=== PATIENT | female | born 1985 | race Caucasian/White ===

== ENCOUNTER → 2024-03-01 | Outpatient (CLI) | payer OTHER ==
--- NOTE | 2024-03-01 16:41 | US ---
EXAMINATION TYPE: US extremity nonvasc mass RT DATE OF EXAM: 03/01/2024 COMPARISON: NONE CLINICAL INDICATION: Female, 39 years old with history of R22.40 local swelling mass lump leg; Pt sta lamont she felt golf ball sized lump right posterior thigh a few weeks ago- has recently decreased in si ze, denies pain TECHNIQUE: Soft tissue right posterior thigh FINDINGS: Soft tissue hyperechoic lesion with small cystic center at palpable site= 1.2 x 0.4 x 1.6 cm with peripheral vascularity IMPRESSION: Partly solid hyperechoic 1.2 x 1.6 x 0.4 cm mass. Indeterminant etiology but is not a si mple cyst. Short-term follow-up is recommended.
== END | disposition home or self-care (01) ==
LOC: RADUSWWP 13:35
PROVIDERS: ATTEND Family Medicine
DX: R22.41 Localized swelling, mass and lump, right lower limb (principal)

== ENCOUNTER → 2024-08-01 | Outpatient (CLI) | payer OTHER ==
[2024-08-01 15:29] LABS: Basophils # (A) 0.05 X 10*3/uL (0.00-0.10); Basophils % (A) 0.9 %; Eosinophils # (A) 0.02 X 10*3/uL (0.04-0.35); Eosinophils % (A) 0.4 %; HCT 40.4 % (37.2-46.3); HGB 13.5 g/dL (12.0-15.0); Lymphocytes # (A) 1.59 X 10*3/uL (0.90-5.00); Lymphocytes % (A) 27.9 %; MCH 34.3 pg (27.0-32.0); MCHC 33.4 g/dL (32.0-37.0); MCV 102.5 FL (80.0-97.0); Mean Platelet Volume 9.4 FL (9.5-12.2); Monocytes # (A) 0.47 X 10*3/uL (0.20-1.00); Monocytes % (A) 8.3 %; NRBC Per 100 WBC 0 X 10*3/uL (0.00-0.01); Neutrophils # (A) 3.55 X 10*3/uL (1.80-7.70); Neutrophils % (A) 62.3 %; Platelet Count 176 X 10*3/uL (140-440); RBC 3.94 X 10*6/uL (4.10-5.20); RDW 11.9 % (11.5-14.5); WBC 5.69 X 10*3/uL (4.50-10.00)
[2024-08-01 18:29] LABS: Prolactin 2.1 ng/mL (2.800-29.200)
[2024-08-02 13:24] LABS: ACTH 37.7 pg/mL (0.00-45.99)
== END | disposition home or self-care (01) ==
LOC: LABWHC1 09:54
PROVIDERS: ATTEND Internal Medicine Endocrinology, Diabetes & Metabolism
DX: E23.0 Hypopituitarism (principal)
CPT/HCPCS: 36415; 82024; 82533; 84146; 84305; 84439; 84443; 84480; 85025

== ENCOUNTER → 2024-08-14 | Outpatient (CLI) | payer OTHER ==
[2024-08-14 15:20] LABS: Prolactin 3.1 ng/mL (2.800-29.200); T4, Free (Free Thyroxine) 0.9 ng/dL (0.80-1.80)
[2024-08-14 15:36] LABS: Basophils # (A) 0.04 X 10*3/uL (0.00-0.10); Basophils % (A) 0.7 %; Eosinophils # (A) 0.01 X 10*3/uL (0.04-0.35); Eosinophils % (A) 0.2 %; HCT 39.9 % (37.2-46.3); HGB 13.1 g/dL (12.0-15.0); Lymphocytes # (A) 1.09 X 10*3/uL (0.90-5.00); Lymphocytes % (A) 19.2 %; MCH 34.5 pg (27.0-32.0); MCHC 32.8 g/dL (32.0-37.0); Mean Platelet Volume 9.4 FL (9.5-12.2); Monocytes # (A) 0.41 X 10*3/uL (0.20-1.00); Monocytes % (A) 7.2 %; NRBC Per 100 WBC 0 X 10*3/uL (0.00-0.01); Neutrophils # (A) 4.13 X 10*3/uL (1.80-7.70); Neutrophils % (A) 72.5 %; Platelet Count 206 X 10*3/uL (140-440); RDW 11.9 % (11.5-14.5); WBC 5.69 X 10*3/uL (4.50-10.00)
[2024-08-15 01:36] LABS: ACTH 41.5 pg/mL (0.00-45.99)
== END | disposition home or self-care (01) ==
LOC: LABWHC1 10:10
PROVIDERS: ATTEND Internal Medicine Endocrinology, Diabetes & Metabolism
DX: E23.0 Hypopituitarism (principal)
CPT/HCPCS: 36415; 82024; 82533; 84146; 84305; 84439; 84443; 84480; 85025

== ENCOUNTER → 2024-08-30 | Outpatient (CLI) | payer OTHER | END | disposition home or self-care (01) | LOC: LABWHC1 07:50 | PROVIDERS: ATTEND Internal Medicine Endocrinology, Diabetes & Metabolism | DX: E23.0 Hypopituitarism (principal) | CPT/HCPCS: 36415; 82533 ==

== ENCOUNTER → 2024-09-30 | Outpatient (CLI) | payer OTHER ==
--- NOTE | 2024-09-30 12:42 | MM ---
Reason for Exam: Screening (asymptomatic). Patient History: Menarche at age 11. First Full-Term at age 29. Late child-bearing (after 30). Patient has history of breast feeding. Estrogen for 2 months from age 39 until age 39. 03/13/2018, Benign US biopsy breast VAD RT on the right side. Maternal aunt had breast cancer under age 50. Last menstrual period: 09/13/2024 Risk Values: Cheryl 5 year model risk: 1.2%. NCI Lifetime model risk: 16.5%. Prior Study Comparison: No prior studies available for comparison. Tissue Density: The breasts are extremely dense, which lowers the sensitivity of mammography. Findings: Analyzed By CAD. Microclip right breast are biopsy. There are grouped and regional calcifications posterior upper outer quadrant right breast for which further magnification views are recommended. Given the extremely dense tissues, ultrasound can also be performed. Overall Assessment: Incomplete: need additional imaging evaluation, BI-RAD 0 Management: Special View Mammogram of the right breast. Diagnostic Breast Ultrasound of the right breast. [facility] will attempt to contact patient to return for supplemental magnification views and ultrasound. [facility], , 09/30/2024 12:39 PM. Electronically signed and approved by: Micah Eller M.D. Radiologist
== END | disposition home or self-care (01) ==
LOC: RADMAMWWP 08:03
PROVIDERS: ATTEND Family Medicine
DX: Z12.31 Encounter for screening mammogram for malignant neoplasm of breast (principal); Z80.3 Family history of malignant neoplasm of breast; R92.343 Mammographic extreme density, bilateral breasts
CPT/HCPCS: 77063; 77067

== ENCOUNTER → 2024-10-10 | Outpatient (CLI) | payer OTHER ==
--- NOTE | 2024-10-10 11:19 | USB ---
Reason for Exam: Additional evaluation requested from abnormal screening. Patient History: Menarche at age 11. First Full-Term at age 29. Late child-bearing (after 29). Patient has history of breast feeding. Estrogen for 2 months from age 39 until age 39. 03/13/2018, Benign US biopsy breast VAD RT on the right side. Maternal aunt had breast cancer under age 50. Risk Values: Cheryl 5 year model risk: 1.2%. NCI Lifetime model risk: 16.5%. Technique: Method: Targeted. Prior Study Comparison: 09/30/2024 Bilateral MG 3D screening mammo w/cad, [facility]. Findings: The upper outer quadrant of the right breast, the axilla of the right breast and the retroareolar of the right breast were scanned. No solid or cystic masses are identified. There are couple small axillary lymph nodes present.. Management be based on the more suspicious mammographic calcification findings. Overall Assessment: Suspicious, BI-RAD 4 Management: Stereotactic Core Biopsy of the right breast. A clinical breast exam by your physician is recommended on an annual basis and results should be correlated with mammographic findings. This exam should not preclude additional follow-up of suspicious palpable abnormalities. Results were given to the patient verbally at the time of exam. [facility], , 10/10/2024 10:59 AM. Electronically signed and approved by: George Farrar D.O. Radiologis
== END | disposition home or self-care (01) ==
LOC: RADMAMWWP 09:58
PROVIDERS: ATTEND Family Medicine
DX: R92.8 Other abnormal and inconclusive findings on diagnostic imaging of breast (principal); Z80.3 Family history of malignant neoplasm of breast
CPT/HCPCS: 77061; 77065

== ENCOUNTER → 2024-11-07 | Day surgery (SDC) | payer OTHER ==
[~2024-11-07] MED LIST: ALPRAZolam 0.25 MG TAB PO PRN
[2024-11-07] MEDS: ALPRAZolam 0.5 MG TAB PO PRN (07:31)
[2024-11-07 07:40] VITALS: RESP 16
[2024-11-07 09:20] VITALS: BP 111/73; PULSE 67; TEMP 98.1
--- NOTE | 2024-11-08 09:03 | MM ---
Date of Procedure: 11/07/24 Preoperative Diagnosis: Microcalcifications of concern upper outer quadrant right breast Postoperative Diagnosis: Same Procedure(s) Performed: Right breast stereotactic core biopsy Anesthesia: local Surgeon: Ciara Wilson Pathology: other (Breast tissue/radiograph of specimen reveals microcalcifications of concern) Condition: stable Disposition: same day (breast tissue/specimen reveals microcalcifications of concern) Indications for Procedure: Microcalcifications of concern right breast upper outer quadrant region Operative Findings: Radiograph of specimen reveals microcalcifications of concern Description of Procedure: Following informed consent the patient was brought to the stereotactic core biopsy room. She was positioned in the upright chair. A lateral to medial approach was used on the right breast. The patient had right breast microcalcifications of concern. A iron guardrail installer film was obtained. The microcalcifications of concern were identified. The breast was prepped using chlorhexidine. 20 cc of 1% lidocaine were used to anesthetize the area of concern. A 9 gauge vacuum-assisted core rotating petite biopsy needle was driven to the correct coordinates. A prefire film was obtained. The needle was noted to be in the correct location. A post fire film was obtained. The needle was noted to be in the correct location. 26 specimens were obtained. Radiograph of the specimen revealed the microcalcifications of concern. A trimark clip was placed. The clip appeared to be in the correct location. The specimen is sent to pathology. The patient will follow-up with Dr. Ramírez in 1 week. DANIELLA
== END ==
LOC: RADMAMWWP 07:19
PROVIDERS: ATTEND Surgery
DX: R92.1 Mammographic calcification found on diagnostic imaging of breast (principal); R92.8 Other abnormal and inconclusive findings on diagnostic imaging of breast
CPT/HCPCS: 88305; 19081; A4648; J2003

== ENCOUNTER → 2024-11-07 | Outpatient (CLI) | payer OTHER ==
[2024-11-07 08:02] VITALS: BP 116/75; PULSE 73; RESP 16; TEMP 97.9
--- NOTE | 2024-11-07 08:19 | P.GSCN ---
History of Present Illness Consult date: 11/07/24 Reason for Consult: abnormal right breast mammogram Requesting physician: Nathan Ochoa History of present illness: Archana is a 39 year old female seen in consultation for DR. Ochoa regrading an abnormal right breast mammogram. She had a bilateral screening mammogram on 09-30-24 which showed calcifications of concern in the right breast UOQ. She then had an ultrasound done of the area on 10-10-24. This did not show any lesions. She was recommended to have a stero biopsy of the right breast. She had a biopsy in her right breast about 6 years ago which was percutaneous and benign. She feels a small lump in her right breast which has not changed for many years. That is the only surgery she has had on her breast. She is not complaining of any recent trauma or infection in her breast. She is not complaining of any nipple discharge or skin changes. She has not had any other surgeries on her breast. She does not feel any other lumps masses or nodules of concern in either breast. This was her first mammogram in about 6 years. Caffeine: 1 cup/day nicotine: none chocolate: occasional BCP: used in the remote past for about 10 years hormones: was on estrogen 2 months, stopped 2 months ago for a short periods of time, her cortisol levels are high (loosing her hair, mood swings, so asked for hormone testing), she had a dexamethasone suppression test and had elevated cortisol levels MRI done and no lesions seen by report in her adrenals; it was doen at [facility] Family History: maternal aunt: breast cancer paternal aunt: skin cancer, breast cancer Hormonal History: menarche: 11 , breast fed: yes, age at fist 29 periods she has not had a period for 4 years; she stopped breast feeding and her periodd did not come back Surgical History: 2 C Sections Medical History: anxiety hormone imbalance high cortisol Social History: nicotine: none alcohol: 1/2 glasses of wine a night; since about 19 years old drugs: none Review of Systems - Constitutional Reports sweats - EENT Eyes: bilateral blurred vision Ears: deny: decreased hearing, tinnitus Ears, nose, mouth and throat: Denies dysphagia - Breasts bilateral: as per HPI - Cardiovascular Denies chest pain, Denies shortness of breath - Respiratory Denies cough, Denies 7 - Gastrointestinal Reports as per HPI - Genitourinary Genitourinary: Denies dysuria, Denies hematuria Menstruation: Reports as per HPI - Musculoskeletal Reports as per HPI - Integumentary Denies rash, Denies unusual bruising - Neurological Denies headaches, Denies syncope - Psychiatric Reports anxiety - Endocrine Reports as per HPI - Hematologic/Lymphatic Denies easy bleeding, Denies easy bruising - Allergic/Immunologic Reports as per HPI Past Medical History Past Medical History: No Reported History History of Any Multi-Drug Resistant Organisms: None Reported Past Surgical History: Section, Hernia Repair Additional Past Surgical History / Comment(s): wisdom teeth removed Past Anesthesia/Blood Transfusion Reactions: No Reported Reaction Past Psychological History: Anxiety, Depression Smoking Status: Never smoker Past Alcohol Use History: Occasional Past Drug Use History: None Reported Medications and Allergies Home Medications Medication Instructions Recorded Confirmed Type No Known Home Medications 10/11/24 11/07/24 History Allergies Allergy/AdvReac Type Severity Reaction Status Date / Time No Known Allergies Allergy Verified 11/07/24 07:33 Surgical - Exam - General no distress - Eyes normal ocular movement - Neck trachea midline - Respiratory normal respiratory effort, clear to auscultation - Cardiovascular Rhythm: regular Heart Sounds: normal: S1, S2 - Integumentary normal turgor - Neurologic no disoriented, no combative - Musculoskeletal normal gait - Psychiatric oriented to time, oriented to person, oriented to place, speech is normal, memory intact Breast Exam: BRA: 34B Inspection: Bilateral grade 2 ptosis Palpation: Right breast: Multi positional exam fibrocystic changes, no discrete dominant masses or nodules of concern, the patient brings to my attention an area of lobulated breast tissue in the upper inner aspect near the areola which was biopsied in the past and does not feel worrisome Right axilla: No adenopathy of concern Left breast: Multi positional exam fibrocystic changes, no dominant masses or nodules of concern Left axilla: No adenopathy of concern Results Mammogram and ultrasound reviewed and personally interpreted, microcalcifications in the upper outer quadrant of the right breast which are recommended for stereotactic core biopsy Assessment and Plan Assessment: Impression: Radiographic abnormality right breast Fibrocystic breast changes Hormone irregularity at this time with high cortisol levels being worked up Plan: Stereotactic core biopsy right breast Risk and benefits of the procedure discussed with the patient. Risk include but are not limited to bleeding, infection, reaction to the anesthetic. If inadequate tissue acquisition is a change then further tissue acquisition may be necessary. The patient understands and wishes to proceed. CC: Dr. Ochoa
--- NOTE | 2024-11-07 08:57 | P.PCN ---
Date of Procedure: 11/07/24 Preoperative Diagnosis: Microcalcifications of concern upper outer quadrant right breast Postoperative Diagnosis: Same Procedure(s) Performed: Right breast stereotactic core biopsy Anesthesia: local Surgeon: Ciara Wilson Pathology: other (Breast tissue/radiograph of specimen reveals microcalcifications of concern) Condition: stable Disposition: same day (breast tissue/specimen reveals microcalcifications of concern) Indications for Procedure: Microcalcifications of concern right breast upper outer quadrant region Operative Findings: Radiograph of specimen reveals microcalcifications of concern Description of Procedure: Following informed consent the patient was brought to the stereotactic core biopsy room. She was positioned in the upright chair. A lateral to medial approach was used on the right breast. The patient had right breast microcalcifications of concern. A woods rider film was obtained. The microcalcifications of concern were identified. The breast was prepped using chlorhexidine. 20 cc of 1% lidocaine were used to anesthetize the area of concern. A 9 gauge vacuum-assisted core rotating petite biopsy needle was driven to the correct coordinates. A prefire film was obtained. The needle was noted to be in the correct location. A post fire film was obtained. The needle was noted to be in the correct location. 26 specimens were obtained. Radiograph of the specimen revealed the microcalcifications of concern. A trimark clip was placed. The clip appeared to be in the correct location. The specimen is sent to pathology. The patient will follow-up with Dr. Ramírez in 1 week.
== END ==
LOC: WWCWWP 07:22
PROVIDERS: ATTEND Surgery
DX: N60.11 Diffuse cystic mastopathy of right breast (principal); R92.8 Other abnormal and inconclusive findings on diagnostic imaging of breast; R89.1 Abnormal level of hormones in specimens from other organs, systems and tissues; Z80.3 Family history of malignant neoplasm of breast

== ENCOUNTER → 2024-11-28 | Outpatient (CLI) | payer OTHER ==
[2024-11-28 12:47] VITALS: BP 135/81; PULSE 82; RESP 16; TEMP 97.7
--- NOTE | 2024-11-28 13:01 | P.PN ---
Subjective Progress Note Date: 11/28/24 Principal diagnosis: fibrocystic breast disease Archana is a 39 year old female seen in consultation for DR. Ochoa regrading an abnormal right breast mammogram. She had a bilateral screening mammogram on 09-30-24 which showed calcifications of concern in the right breast UOQ. She then had an ultrasound done of the area on 10-10-24. This did not show any lesions. She was recommended to have a stero biopsy of the right breast. She had a biopsy in her right breast about 6 years ago which was percutaneous and benign. She feels a small lump in her right breast which has not changed for many years. That is the only surgery she has had on her breast. She is not complaining of any recent trauma or infection in her breast. She is not complaining of any nipple discharge or skin changes. She has not had any other surgeries on her breast. She does not feel any other lumps masses or nodules of concern in either breast. This was her first mammogram in about 6 years. stero biopsy done on 11-07-24/ benign concordant, she developed a hematoma at the site which is stable at this time. She is doing timed blood work to evaluate cortisol levels, ? cushings disease, Dr. Zenaida Garrison her practice ois in [place] Caffeine: 1 cup/day nicotine: none chocolate: occasional BCP: used in the remote past for about 10 years hormones: was on estrogen 2 months, stopped 2 months ago for a short periods of time, her cortisol levels are high (loosing her hair, mood swings, so asked for hormone testing), she had a dexamethasone suppression test and had elevated cortisol levels MRI done and no lesions seen by report in her adrenals; it was done at [facility] Family History: maternal aunt: breast cancer paternal aunt: skin cancer, breast cancer Hormonal History: menarche: 11 , breast fed: yes, age at fist 29 periods she has not had a period for 4 years; she stopped breast feeding and her periodd did not come back Surgical History: 2 C Sections Medical History: anxiety hormone imbalance high cortisol Social History: nicotine: none alcohol: 1/2 glasses of wine a night; since about 19 years old drugs: none Review of Systems - Constitutional Reports sweats - EENT Eyes: bilateral blurred vision Ears: deny: decreased hearing, tinnitus Ears, nose, mouth and throat: Denies dysphagia - Breasts bilateral: as per HPI - Cardiovascular Denies chest pain, Denies shortness of breath - Respiratory Denies cough, Denies 7 - Gastrointestinal Reports as per HPI - Genitourinary Genitourinary: Denies dysuria, Denies hematuria Menstruation: Reports as per HPI - Musculoskeletal Reports as per HPI - Integumentary Denies rash, Denies unusual bruising - Neurological Denies headaches, Denies syncope - Psychiatric Reports anxiety - Endocrine Reports as per HPI - Hematologic/Lymphatic Denies easy bleeding, Denies easy bruising - Allergic/Immunologic Reports as per HPI Past Medical History Past Medical History: No Reported History History of Any Multi-Drug Resistant Organisms: None Reported Past Surgical History: Section, Hernia Repair Additional Past Surgical History / Comment(s): wisdom teeth removed Past Anesthesia/Blood Transfusion Reactions: No Reported Reaction Past Psychological History: Anxiety, Depression Smoking Status: Never smoker Past Alcohol Use History: Occasional Past Drug Use History: None Reported Medications and Allergies Home Medications Medication Instructions Recorded Confirmed Type No Known Home Medications 10/11/24 11/07/24 History Allergies Allergy/AdvReac Type Severity Reaction Status Date / Time No Known Allergies Allergy Verified 11/07/24 07:33 Objective - Vital Signs Vital signs: Vital Signs Temp 97.7 F 11/28/24 12:45 Pulse 82 11/28/24 12:45 Resp 16 11/28/24 12:45 BP 135/81 11/28/24 12:45 Pulse Ox 100 11/28/24 12:45 FiO2 Intake & Output 11/27/24 11/28/24 11/28/24 18:59 06:59 18:59 Weight 54.431 kg - Constitutional General appearance: Present: cooperative - EENT Eyes: Present: EOMI - Neck Neck: Present: normal ROM - Respiratory Respiratory: bilateral: CTA - Cardiovascular Rhythm: regular Heart sounds: normal: S1, S2 - Integumentary Integumentary: Present: normal turgor - Psychiatric Psychiatric: Present: A&O x's 3, appropriate affect, intact judgment & insight - Additional findings Additional findings: Breast Exam: BRA: 34B Inspection: Bilateral grade 2 ptosis Palpation: Right breast: Multi positional exam fibrocystic changes, no discrete dominant masses or nodules of concern, small hematoma with some skin dimpling at the biopsy site in the lateral aspect at approximately the 9 o'clock position Right axilla: No adenopathy of concern 11-07-24 Left breast: Multi positional exam fibrocystic changes, no dominate masses or nodules of concern from last visit 11-07-24 Left axilla: No adenopathy of concern 11-07-24 Assessment and Plan Assessment: Impression: Radiographic abnormality right breast status post stero biopsy benign concordant Fibrocystic breast changes Hormone irregularity at this time with high cortisol levels being worked up Plan: right breast mammogram in 6 months with appointment at that time CC: Dr. Ochoa
== END ==
LOC: WWCWWP 12:28
PROVIDERS: ATTEND Surgery
DX: R92.8 Other abnormal and inconclusive findings on diagnostic imaging of breast (principal); R92.323 Mammographic fibroglandular density, bilateral breasts

== ENCOUNTER → 2024-11-28 | Outpatient (CLI) | payer OTHER | END | disposition home or self-care (01) | LOC: LABWHC1 08:00 | PROVIDERS: ATTEND Internal Medicine Endocrinology, Diabetes & Metabolism | DX: E23.0 Hypopituitarism (principal) | CPT/HCPCS: 36415; 82533 ==

== ENCOUNTER → 2025-05-06 | Outpatient (CLI) | payer OTHER | END | disposition home or self-care (01) | LOC: LABWHC1 07:25 | PROVIDERS: ATTEND Internal Medicine Endocrinology, Diabetes & Metabolism | DX: E24.9 Cushing's syndrome, unspecified (principal) | CPT/HCPCS: 36415; 82024; 82533; 84146 ==

== ENCOUNTER → 2025-05-28 | Outpatient (CLI) | payer OTHER ==
--- NOTE | 2025-05-28 10:57 | MM ---
Reason for Exam: Follow-up at short interval from prior study. Last screening mammogram was performed 7 month(s) ago. Patient History: Menarche at age 11. First Full-Term at age 29. Late child-bearing (after 30). Patient has history of breast feeding. Estrogen for 2 months from age 39 until age 39. 11/07/2024, Benign MG stereo VAD BX RT on the right side. 03/13/2018, Benign US biopsy breast VAD RT on the right side. Maternal aunt had breast cancer under age 50. Risk Values: Cheryl 5 year model risk: 2.2%. NCI Lifetime model risk: 21.1%. Prior Study Comparison: 09/30/2024 Bilateral MG 3D screening mammo w/cad, [facility]. 10/10/2024 Right MG 3D work up w/cad RT, [facility]. Tissue Density: Right: The breasts are extremely dense, which lowers the sensitivity of mammography. Findings: Analyzed By CAD. Microclip lateral right breast from biopsy 6 months ago. Microclip medially from prior biopsy. Regional punctate calcifications posterior upper outer quadrant right breast are unchanged. No significant change. Overall Assessment: Benign, BI-RAD 2 Management: Screening Mammogram of both breasts in 4 months. Back on schedule. SEE NOTE BELOW IN REGARDS TO THE PATIENT'S INCREASED LIFETIME RISK SCORE. Results were given to the patient verbally at the time of exam. Patient should continue monthly self-breast exams. A clinical breast exam by your physician is recommended on an annual basis. This exam should not preclude additional follow-up of suspicious palpable abnormalities. Note on Cheryl scores and lifetime risk: 1. A Cheryl score greater than 3% is considered moderate risk. If this is the case, consider specialist referral to assess eligibility for a risk reducing agent. 2. If overall lifetime risk for the development of breast cancer is 20% or higher, the patient may qualify for future screening with alternating mammogram and breast MRI. [facility], , 05/28/2025 10:54 AM. Electronically signed and approved by: Micah Eller M.D. Radiologist
== END | disposition home or self-care (01) ==
LOC: RADMAMWWP 10:04
PROVIDERS: ATTEND Surgery
DX: R92.8 Other abnormal and inconclusive findings on diagnostic imaging of breast (principal); R92.341 Mammographic extreme density, right breast; Z80.3 Family history of malignant neoplasm of breast
CPT/HCPCS: 77061; 77065